=== PATIENT | female | born 1990 | race Caucasian/White ===

== ENCOUNTER 2017-01-18 23:59 | Emergency (ER) | payer OTHER ==
[~2017-01-18] VITALS: Ht 170.2 cm; Wt 69.5 kg
[~2017-01-18 23:59] MED LIST: PRENTAB26 PO
[2017-01-19 00:06] VITALS: TEMP 36.8; Ht 170.2 cm; Wt 69.5 kg
[2017-01-19 01:05] VITALS: BP 134/88; PULSE 72; O2SAT 98
--- NOTE | 2017-01-19 04:07 | EMERGENCY ROOM VISIT NOTE ---
History First contact with patient: 00:21 Chief Complaint: NEEDLE STICK Stated Complaint: NEEDLE STICK History of Present Illness The patient is a 27 year old female who presents to the Emergency Room with complaints of a needle stick injury to her left third finger. 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 The patient states that she was stuck by a suture needle, and this did draw blood. The patient washed the wound and filed an incident report. She now presents to the emergency department for further management. The patient states that she is usually healthy and up-to-date on her appropriate immunizations such as tetanus. She does not have chronic medical disease. She rates her discomfort a 0/10. Review of Systems More than 10 systems were reviewed and otherwise negative with the exception of history of present illness. Past Medical/Surgical History Medical Problems: (1) 39 weeks gestation of Social History Smoking Status: Never Smoker Housing Status: lives with family Occupation Status: employed Current/Historical Medications No Active Prescriptions or Reported Meds Physical Exam Vital Signs Date Time Temp Pulse Resp B/P (MAP) Pulse Ox O2 Delivery O2 Flow Rate FiO2 01/19/17 01:05 72 16 134/88 98 01/19/17 00:06 36.8 88 18 125/82 99 Room Air Pain Rating (0-10): 0 Physical Exam VITALS: Vitals are noted on the nurse's note and reviewed by myself. Vital signs stable. GENERAL: Well-developed, well-nourished, white female, who is in no acute distress and resting comfortably. Patient is cooperative with the examination. HEART: Regular rate and rhythm without murmurs gallops or rubs. LUNGS: Clear to auscultation bilaterally without wheezes, rales or rhonchi. No retractions or accessory muscle use. SKIN: The skin was with a very small area along the lateral left third finger consistent with needle stick injury. There is no significant laceration. The patient is able to open and close her hand without difficulty. No other injuries appreciated. Medical Decision & Procedures ED Course Physical exam and history were performed. Nursing notes, EMR, and Medication List were personally reviewed. Patient appears to have suffered a needle stick injury just prior to arrival. The injury occurred sometime between 8 PM and 9 PM, and she arrives to the emergency department just after midnight. She does not have significant laceration that will require repair. I reviewed the [facility] protocols at length with the patient, and she does consent for HIV testing. She does not wish to begin HIV postexposure prophylaxis. She was able to identify the source patient, and the source patient attending is Dr. Hayes of the [employer] service. The patient had all of her questions answered and appropriate paperwork was completed and signed. The patient had blood work performed by the lab, and will need to follow with [facility] services in the morning. [facility] was contacted and telephone message was left per the after hours protocol. The patient rated her discomfort a 0/10 at the time of departure. The chart was completed utilizing [employer] Speech Voice Recognition Software. Grammatical errors, random word insertions, pronoun errors, and incomplete sentences are an occasional consequence of this system due to software limitations, ambient noise, and hardware issues. Any formal questions or concerns about the content, text, or information contained within the body of this dictation should be directly addressed to the provider for clarification. . Medical Decision Differential diagnosis includes, but is not limited to: Fingerstick, laceration , foreign body, infectious disease exposure, and others Impression Primary Impression: Needlestick injury of finger of left hand Departure Information Dispostion Home / Self-Care Condition GOOD Prescriptions No Active Prescriptions or Reported Meds Referrals Diane Montiel Forms HOME CARE DOCUMENTATION FORM, IMPORTANT VISIT INFORMATION Patient Instructions My [facility] Additional Instructions You were seen and evaluated today on an emergency basis only. This is not a substitute for, or an effort to provide, complete comprehensive medical care. It is not possible to recognize and treat all injuries or illnesses in a single emergency department visit. For this reason it is recommended that you followup with [facility] this week for results of your testing. You are welcome to return to the emergency department anytime with new, worsening, or concerning symptoms.
== END 2017-01-19 01:02 | disposition home or self-care (01) ==
LOC: C.EDB 01-19 00:01 → C.EDA 01-19 01:02
DX: S60.943A Unspecified superficial injury of left middle finger, initial encounter (principal); W27.3XXA Contact with needle (sewing), initial encounter; Y92.89 Other specified places as the place of occurrence of the external cause; Y99.0 Civilian activity done for income or pay

== ENCOUNTER → 2017-06-24 | Outpatient (CLI) | payer OTHER | END | disposition home or self-care (01) | LOC: C.PAPS 14:03 | PROVIDERS: ATTEND Obstetrics & Gynecology | DX: O02.1 Missed abortion (principal) ==

== ENCOUNTER → 2017-06-24 | Outpatient (CLI) | payer OTHER | END | disposition home or self-care (01) | LOC: C.LAB1850 10:43 | PROVIDERS: ATTEND Obstetrics & Gynecology | DX: O02.1 Missed abortion (principal) ==

== ENCOUNTER → 2017-07-08 | Outpatient (CLI) | payer OTHER | END | disposition home or self-care (01) | LOC: C.LAB 06:06 | PROVIDERS: ATTEND Obstetrics & Gynecology | DX: O02.1 Missed abortion (principal) ==

== ENCOUNTER → 2017-07-20 | Outpatient (CLI) | payer OTHER | END | disposition home or self-care (01) | LOC: C.LAB 07:36 | PROVIDERS: ATTEND Obstetrics & Gynecology | DX: O02.1 Missed abortion (principal) ==

== ENCOUNTER → 2018-01-13 | Outpatient (CLI) | payer OTHER ==
[2018-01-13 10:05] LABS: BASO % 0.6 %; BASO ABS # 0.05 K/uL (0-0.2); EOS ABS # 0.08 K/uL (0-0.5); HEMATOCRIT 33.9 % (37-47); HEMOGLOBIN 11.4 g/dL (12.0-16.0); IG# 0.02 K/uL (0.00-0.02); LYMPH % 41.8 %; LYMPH ABS # 3.22 K/uL (1.2-3.4); MEAN CELL VOLUME 87.6 fL (80-100); MEAN CORPUSCULAR HEMOGLOBIN 29.5 pg (25-34); MEAN CORPUSCULAR HGB CONC 33.6 g/dl (32-36); MEAN PLATELET VOLUME 10.4 fL (7.4-10.4); MONO % 6.1 %; MONO ABS # 0.47 K/uL (0.11-0.59); NEUT % 50.2 %; NEUT ABS # 3.86 K/uL (1.4-6.5); PLATELET COUNT 246 K/uL (130-400); RED CELL DISTRIBUTION WIDTH CV 13.9 % (11.5-14.5); RED CELL DISTRIBUTION WIDTH SD 45.1 fL (36.4-46.3)
== END | disposition home or self-care (01) ==
LOC: C.LAB 07:21
PROVIDERS: ATTEND Obstetrics & Gynecology
DX: Z34.81 Encounter for supervision of other normal pregnancy, first trimester (principal)

== ENCOUNTER 2018-07-18 08:47 | Inpatient (IN) ==
[2018-07-18] MEDS ORDERED: LACTATED RINGER'S 1,000 ML IV PRN ×3 (10:05→14:21)
[2018-07-18] MEDS ORDERED: OXYTOCIN 30 UNITS/500 ML BAG IV PRN ×3 (10:05→15:59)
--- NOTE | 2018-07-18 10:11 | History & Physical Report ---
Date of Service July 18, 2018 Assessment & Plan (1) 39 weeks gestation of : -Tracing category 1 -We will start Pitocin per induction protocol -Anticipate vaginal delivery History of Present Illness Chief Complaint: Elective term induction Primary Care Provider: David Tejeda The patient is a 28-year-old 6 para 2, with an EDC of 22 July by first trimester ultrasound, who was admitted at 39+ weeks gestational age for elective term induction. The patient has had a benign course. Laboratory values for the show a blood type of A-, antibody negative, she received RhoGam on 04 May, she is hepatitis B negative, rubella immune , she had a normal cell free DNA screen, she had normal 1 hour Glucola x2, and a negative third trimester beta strep culture. Allergies Allergy/AdvReac Type Severity Reaction Status Date / Time Penicillins Allergy Intermediate HIVES Verified 01/19/17 00:25 Home Medications Home Medications Medication Instructions Recorded Confirmed Type vit no.[id number] 1 tab PO DAILY 07/18/18 07/18/18 History [ Vitamin] Patient History Medical History Spontaneous 2014, 2016, 2018 [place] teeth removed Surgical History History of tonsillectomy Social History marital status: Current Living Situation: Family Current Living Situation Comment: lives with spouse and 2 daughters Feels Safe at Home: Yes Safety Concerns: Feels Safe At This Time Smoking Status: Never smoker Hx Alcohol Use: No Hx Substance Use: No Beliefs That Will Affect Care: None Preferred Language: Slovenian Communication Ability: Effective Grom[employer] Worker Required: No Physical Exam 2 Vital Signs (Past 24 Hours): Last Vital Signs Temp 36.6 C 07/18/18 09:02 Pulse 75 07/18/18 08:57 Resp 20 07/18/18 09:02 BP 122/78 07/18/18 08:57 Constitutional: WD/WN, vitals as above Respiratory: Auscultation: lungs clear to auscultation bilaterally Cardiovascular: RRR, no murmur, no edema Extremities: no calf tenderness Gastrointestinal (Abdomen): Gravid, vertex, positive heart tones, estimated weight 7-1/2 pounds Genitourinary: Manual OB Exam: + cervical dilation 2 cm, + cervical effacement 50%, + station -2 and + amniotic fluid (Artificial rupture of membranes, clear fluid) OB Exam Monitor Tracing: + external FHT monitor used and + category I
[2018-07-18 10:23] LABS: Hematocrit (blood only) 39.7 % (37-47); Hemoglobin 13.7 g/dL (12.0-16.0); Mean Corpuscular Volume 91.3 fL (80-100); Mean Platelet Volume 11.9 fL (7.4-10.4); Platelet Count 218 K/uL (130-400); RDW Standard Deviation 43.1 fL (36.4-46.3); Red Blood Count 4.35 M/uL (4.2-5.4); White Blood Count 10.23 K/uL (4.8-10.8)
[2018-07-18 10:26] LABS: Mean Corpuscular Hgb Conc 34.5 g/dL (32-36)
[2018-07-18] MEDS: LACTATED RINGER'S 1,000 ML IV SCH ×2 (10:30→13:48)
[2018-07-18] MEDS ORDERED: BUPIVACAINE 0.25% 30 ML VIAL ONE (13:05)
[2018-07-18] MEDS ORDERED: ePHEDrine sulfate 50 MG/ML AMP ONE (13:05)
[2018-07-18] MEDS ORDERED: fentaNYL 2MCG/ML ROPIV 1.25MG/ML 100 ML BAG EPI ONE (13:06)
[2018-07-18] MEDS ORDERED: fentaNYL citrate 100 MCG/2 ML VIAL ONE (13:06)
--- NOTE | 2018-07-18 13:54 | Anesthesiology Consultation ---
Date of Service July 18, 2018 Assessment & Plan (1) Encounter for pre-operative examination: Chart Review Chart Review: Acceptable Risk for Labor Epidural Consults Requested none ASA ASA2 Proposed Anesthesia Anesthesia Type: Labor Epidural and CSE Risk / Benefits Reviewed With: PT / POA / Parent / Guardian, Accepts Plan and Informed Consent Obtained NPO Date Last Intake of Fluids: 07/18/18 Time Last Intake of Fluids: 13:00 Date Last Intake of Solids: 07/18/18 Time Last Intake of Solids: 06:00 History Height/Weight Height: 5 ft 7 in Weight: 80.286 kg Allergies Allergy/AdvReac Type Severity Reaction Status Date / Time Penicillins Allergy Intermediate HIVES Verified 01/19/17 00:25 Medications Home Medications Medication Instructions Recorded Confirmed Last Taken vit no.[id number]-qqow-[id number] 1 tab PO DAILY 07/18/18 07/18/18 07/17/18 08:00 [ Vitamin] Active Medications Generic Name Dose Route Start Last Admin Trade Name Freq PRN Reason Stop Dose Admin Lactated Ringer's 1,000 mls @ 125 mls/hr 07/18/18 10:15 07/18/18 13:48 Lr IV 07/20/18 10:14 125 mls/hr .Q8H YOSEF Administration Oxytocin 30 units in 500 mls @ 9 mls/hr 07/18/18 10:05 07/18/18 12:59 Pitocin IV 07/20/18 10:04 0.54 units/hr .Q24H PRN 9 mls/hr Labor Induction/Augmentation Titration Protocol 0.54 UNITS/HR Beta Antoni Beta Antoni Taken Within 24 Hours: No Past Medical History Medical History Spontaneous 2014, 2016, 2018 [place] teeth removed Past Surgical History Surgical History History of tonsillectomy Past Anesthesia History No Hx of Anesthesia Complications and No Family Hx of Anesthesia Complications History of PONV No Motion Sickness Screening History of Motion Sickness: No Social History Smoking Status: Never smoker Hx Alcohol Use: No Hx Substance Use: No Exercise / Class Metabolic Activity II 4-5 Yardwork/Stairs/Walk up hill Review of Systems no chest pain or sob Physical Exam Vital Signs Last Vital Signs Temp 36.8 C 07/18/18 13:32 Pulse 85 07/18/18 13:53 Resp 20 07/18/18 13:32 BP 131/60 07/18/18 13:32 Pulse Ox 100 07/18/18 13:53 ENMT Mouth: no TMJ abnormality Thyromental Distance: > or= 3.5 Finger Breadths Mallampati Class: II Neck normal visual inspection Respiratory normal respiratory effort Auscultation: lungs clear to auscultation bilaterally Cardiovascular Rate/Rhythm: regular rate and regular rhythm Musculoskeletal Spine: normal cervical ROM Neurologic moves all extremities Psychiatric Orientation: alert and oriented x 3 Testing Laboratory Results 07/18/18 10:11
[2018-07-18] MEDS ORDERED: NALBUPHINE HCL INJ 10 MG/ML AMP IV PRN (14:21)
[2018-07-18] MEDS ORDERED: fentaNYL 2MCG/ML ROPIV 1.25MG/ML 100 ML BAG EPI PRN (14:21)
[2018-07-18] MEDS ORDERED: ePHEDrine sulfate 50 MG/ML AMP IV PRN (14:21)
[2018-07-18] MEDS ORDERED: NALOXONE HCL 0.4 MG/1 ML VIAL/CARP IV PRN (14:21)
[2018-07-18] MEDS ORDERED: DiphenhydrAMINE HCL 50 MG/ML VIAL IV PRN (14:21)
[2018-07-18] MEDS ORDERED: ONDANSETRON INJ 2 MG/ML 2 ML VIAL IV PRN (14:21)
[2018-07-18] MEDS ORDERED: NALOXONE HCL 1 MG in SODIUM CHLORIDE 0.9% 1000ML 1,000 ML IV PRN (14:21)
[2018-07-18 15:22] LABS: Base Excess Cord Arterial Bld -3.3 mEq/L (-9-1.8); CO2 Cord Arterial Blood 53 mmHg (39.1-73.5); HCO3 Cord Arterial Blood 24 mmol/L (19.7-28.5); pH Cord Arterial Blood 7.28 (7.1-7.38)
[2018-07-18 15:34] LABS: Base Excess Cord Venous Blood -1.6 mEq/L (-7.7-1.9); Cord Venous Blood HCO3 23 mmol/L (18.4-26.8); Cord Venous Blood PCO2 37 mmHg (30.4-57.2); Cord Venous Blood PO2 34 mmHg (14.1-43.3); Cord Venous Blood pH 7.41 (7.20-7.44)
--- NOTE | 2018-07-18 15:58 | Anesthesia Procedure Note ---
Date of Service July 18, 2018 Anesthesia Post Epidural Note Vital Signs Vital Signs: Temp Pulse Resp BP Pulse Ox 07/18/18 15:44 73 124/60 07/18/18 15:15 75 20 122/64 07/18/18 15:00 85 20 138/75 07/18/18 14:53 86 100 07/18/18 14:49 79 91 07/18/18 14:48 78 95 07/18/18 14:45 20 07/18/18 14:43 96 H 100 07/18/18 14:40 78 93 07/18/18 14:39 74 116/72 07/18/18 14:38 77 100 07/18/18 14:35 63 118/54 L 07/18/18 14:33 66 100 07/18/18 14:30 66 20 98/59 L 07/18/18 14:28 72 100 07/18/18 14:25 96 H 129/67 07/18/18 14:24 79 91 07/18/18 14:23 107 H 100 07/18/18 14:16 72 129/62 07/18/18 14:15 36.8 C 77 20 124/58 L 100 07/18/18 14:13 111 H 100 07/18/18 14:12 100 H 122/66 07/18/18 14:10 91 H 119/67 07/18/18 14:08 76 100 07/18/18 14:03 74 98 07/18/18 14:02 85 131/84 07/18/18 14:01 87 91 07/18/18 14:00 70 20 125/68 07/18/18 13:58 77 100 07/18/18 13:53 85 100 07/18/18 13:48 71 99 07/18/18 13:43 81 100 07/18/18 13:38 76 100 07/18/18 13:33 67 100 07/18/18 13:32 36.8 C 86 20 131/60 07/18/18 12:36 68 135/67 07/18/18 12:35 20 07/18/18 11:33 37.2 C 69 20 122/60 07/18/18 09:02 36.6 C 20 07/18/18 08:57 75 122/78 Notes Mental Status: alert / awake / arousable Patient Amnestic to Procedure: No Nausea / Vomiting: adequately controlled Pain: adequately controlled Airway Patency, RR, SpO2: stable & adequate BP & HR: stable & adequate Hydration State: stable & adequate Anesthetic Complications: no major complications apparent Epidural: Removed without complications and With tip intact Notes: Pt doing well, no complaints, vss. Epidural site clean, dry, intact without erythema or edema.
[2018-07-18] MEDS ORDERED: OXYCODONE/ACETAMINOPHEN 5mg/325mg TAB PO PRN (15:59)
[2018-07-18] MEDS ORDERED: BENZOCAINE 20% AER SPR 82.5 GM CAN EXT PRN (15:59)
[2018-07-18] MEDS ORDERED: DIPHTHERIA/TETANUS/PERTUSSIS 0.5 ML SYR/VIAL IM ONE (15:59)
[2018-07-18] MEDS ORDERED: ACETAMINOPHEN 325 MG TAB PO PRN (15:59)
[2018-07-18] MEDS ORDERED: BISACODYL 10 MG SUPP PR PRN (15:59)
[2018-07-18] MEDS ORDERED: HYDROCORTISONE ACETATE 25 MG SUPP PR PRN (15:59)
[2018-07-18] MEDS: IBUPROFEN 600 MG TAB PO PRN ×2 (16:28→21:19)
[2018-07-18] MEDS ORDERED: LACTATED RINGER'S 1,000 ML IV SCH (16:30)
--- NOTE | 2018-07-18 18:22 | Procedure Note ---
Vaginal Delivery Summary Date of Service July 18, 2018 Patient induced at 39+ weeks with a cervix of 2 cm initially artificial rupture of membranes and Pitocin group B strep negative patient progressed rapidly requested epidural reached fully dilated and pushed only over a few contractions delivering a baby in occiput anterior mouth and then nares suctioned clear fluid no nuchal cord gentle traction on the baby no excessive force baby delivered without difficulty live vigorous male infant cord clamped and cut cord gases obtained cord blood obtained placenta removed IV Pitocin started small second-degree tear repaired with 3-0 Vicryl estimated blood loss 100 mL sponge and instrument counts correct
[2018-07-18] MEDS: SUPERCREAM 0.870% 15 GM JAR EXT PRN (18:25)
[2018-07-18] MEDS: DOCUSATE SODIUM 100 MG CAP PO SCH (21:19)
[2018-07-19] MEDS: IBUPROFEN 600 MG TAB PO PRN ×2 (04:40→13:37)
--- NOTE | 2018-07-19 06:16 | Obstetrical Progress Note ---
Date of Service <Gallito Mckinley MD - Last Filed: 07/19/18 06:22> July 19, 2018 Assessment & Plan <Gallito Mckinley MD - Last Filed: 07/19/18 06:22> (1) (normal spontaneous vaginal delivery): Yi is a 28yo who presented at 39+3 for induction now s/p PPD#1 - Blood type A- with baby blood type O+. Anti-D BBK profile ordered - Feels well today. Eating well, voiding well, ambulating well. - Bottle feeding - Pain well controlled with ibuprofen 600mg Q4H PRN. - Routine care - After discharge will have [address] Tee. (2) 39 weeks gestation of : Subjective <Gallito Mckinley MD - Last Filed: 07/19/18 06:22> Ambulation: ambulating normally Voiding: no voiding problems Passing Gas:: Yes Diet Tolerance:: regular diet Lochia:: Moderate Feeding Type:: bottle feeding Current Pain Level(1-10): 3 ('moderate with cramps' improves with motrin) Review of Systems Denies fever, chills, sweats Denies shortness of breath, difficulty breathing, chest pain, palpitations, chest pressure. Denies breast pain. Denies dysuria. Denies headache. Physical Exam <Gallito Mckinley MD - Last Filed: 07/19/18 06:22> Vital Signs (Past 24 Hours) Last Vital Signs Temp 36.4 C L 07/19/18 04:45 Pulse 74 07/19/18 04:45 Resp 18 07/19/18 04:45 BP 115/68 07/19/18 04:45 Pulse Ox 100 07/19/18 04:45 General: Alert, oriented. No acute distress. Cardiac: Regular rate and rhythm, no murmurs/rubs/gallops. Respiratory: Clear to auscultation anterior and posteriorly, no wheezes/rales/ rhonchi. No increased work of breathing. Symmetrical chest rise. No respiratory distress. Abdomen: Soft, nontender, nondistended. Bowel sounds present. Uterus: Uterine fundus firm, palpable 2cm below umbilicus. Lower Extremities: No lower extremity edema or swelling. No deep calf pain. Clau's negative bilaterally. <Keren Tee MD, FACOG - Last Filed: 07/19/18 07:51> Co-Signing Physician Notes Resident Physician Supervision Note: I interviewed and examined the patient. Discussed with Dr. Mckinley and agree with findings and plan as documented in the note. Any exceptions or clarifications are listed here: [None] Documented By: Keren Tee MD, FACOG Resident Activity Tracking <Gallito Mckinley MD - Last Filed: 07/19/18 06:22> Resident Involvement: Resident Care Provided Care Provided: Adult Hospital Medicine
[2018-07-19 06:43] LABS: Hemoglobin 13.1 g/dL (12.0-16.0); Mean Corpuscular Hgb Conc 33.6 g/dL (32-36); Mean Platelet Volume 11.7 fL (7.4-10.4); Platelet Count 209 K/uL (130-400); RDW Coefficient of Variation 13.2 % (11.5-14.5); RDW Standard Deviation 43.9 fL (36.4-46.3); Red Blood Count 4.24 M/uL (4.2-5.4); White Blood Count 9.69 K/uL (4.8-10.8)
[2018-07-19] MEDS ORDERED: PRENATAL VITAMIN 1 TAB PO SCH (09:00)
[2018-07-19] MEDS: DOCUSATE SODIUM 100 MG CAP PO SCH (09:24)
[2018-07-19] MEDS: SUPERCREAM 0.870% 15 GM JAR EXT PRN (12:15)
[2018-07-19] MEDS ORDERED: BISACODYL 5 MG TABEC PO SCH (20:00)
== END 2018-07-19 16:20 | disposition home or self-care (01) | DRG 807 ==
LOC: 4S1 08:47 → 4S2 18:55